=== PATIENT | female | born 1960 | race Caucasian/White ===

== ENCOUNTER → 2017-10-22 15:45 | Outpatient (CLI) | payer BC, SELFPAY ==
--- NOTE | 2017-10-22 15:48 | HPBI_ITS ---
MAMMOGRAPHY - BILATERAL SCREENING REASON FOR EXAM: Female, 56 years old. Routine annual screening examination. PERTINENT HISTORY: Non-contributory. Prior right stereotactic breast biopsy. TECHNIQUE: Digital bilateral breast genna (3D mammographic acquisition) in the CC and MLO projections. 2-D mediolateral oblique (MLO) and craniocaudad (CC) views of both breasts were obtained. CAD: Full Field Digital Mammography with Computer Added Detection was performed. COMPARISON: Comparison is made with prior outside examination dated September 25, 2016. FINDINGS: Breast Composition: The breasts are extremely dense, which lowers the sensitivity of mammography. There are no dominant masses or suspicious calcifications. A tissue clip marker is seen in the deep upper lateral portion of the right breast interpreted with prior stereotactic biopsy. A 9.1 mm nodular density is seen at the biopsy site where the clip is present. No other significant abnormalities are identified. There has been no significant change since the prior study. HPBI/SCREENING MAMM (CAD), BILAT IMPRESSION: Stable bilateral screening mammogram. Yearly follow-up mammogram recommended. (A) ASSESSMENT CATEGORY: BIRADS Category 2: Benign. A letter regarding these results will be sent to the patient by the facility within 30 days. Approximately 10% of breast cancers are not detected by mammography. A normal mammogram should not delay biopsy of a clinically suspicious abnormality. [id number] Electronically Signed: Dwight Knapp MD at 9:56 EST Tel [phone], Service support ,
== END ==
PROVIDERS: Family Provider Family Medicine; PCP Family Medicine; Visit Provider Nurse Practitioner Women's Health
DX: Z12.31 Encounter for screening mammogram for malignant neoplasm of breast (principal)
CPT/HCPCS: 77063; 77067

== ENCOUNTER → 2018-12-17 15:20 | Outpatient (CLI) | payer BC, SELFPAY ==
--- NOTE | 2018-12-17 15:24 | BI_ITS ---
MAMMOGRAPHY - BILATERAL SCREENING REASON FOR EXAM: Female, 58 years old. Routine annual screening examination. PERTINENT HISTORY: Non-contributory. Remote right stereotactic breast biopsy. TECHNIQUE: Digital bilateral breast cami (3D mammographic acquisition) in the CC and MLO projections. 2-D mediolateral oblique (MLO) and craniocaudad (CC) views of both breasts were obtained. CAD: Full Field Digital Mammography with Computer Added Detection was performed. COMPARISON: Comparison is made with prior study dated October 22, 2017 and September 25, 2016. FINDINGS: Breast Composition: The breasts are extremely dense, which lowers the sensitivity of mammography. There are no dominant masses or suspicious calcifications. Once again, a tissue clip marker is seen in deep upper lateral portion of the right breast. Stable 9 mm nodular density at the biopsy site. No other significant abnormalities are identified. There has been no significant change since the prior study. BI/SCREEN MAMM (CAD) W/CAMI BILAT IMPRESSION: Stable bilateral screening mammogram. Yearly follow-up mammogram recommended. (A) ASSESSMENT CATEGORY: BIRADS Category 2: Benign. A letter regarding these results will be sent to the patient by the facility within 30 days. Approximately 10% of breast cancers are not detected by mammography. A normal mammogram should not delay biopsy of a clinically suspicious abnormality. [id number] Electronically Signed: Dwight Knapp, at 9:10 EDT , Service support ,
== END ==
PROVIDERS: Family Provider Family Medicine; PCP Family Medicine; Referring Provider Nurse Practitioner Women's Health; Visit Provider Nurse Practitioner Women's Health
DX: Z12.31 Encounter for screening mammogram for malignant neoplasm of breast (principal)
CPT/HCPCS: 77063; 77067

== ENCOUNTER 2019-06-19 13:12 | Emergency (ER) | payer BC, SELFPAY ==
[2019-01-05 08:16] VITALS: BMI 26.6
[2019-06-19 13:12] VITALS: BP 102/65; PULSE 80; RESP 16; TEMP 36.3
[2019-06-19 13:13] VITALS: BP 102/65; PULSE 80; RESP 16; TEMP 36.3; BMI 26.2
--- NOTE | 2019-06-19 13:30 | CT_ITS ---
STUDY: CT ABDOMEN AND PELVIS WITHOUT CONTRAST REASON FOR EXAM: Female, 58 years old. Left lower quadrant pain. RADIATION DOSAGE (If Supplied By Facility): CTDIvol = ( 7.49 ) mGy, DLP = ( 346.02 ) mGycm TECHNIQUE: Transaxial images were obtained from the dome of the diaphragm to the symphysis pubis without oral contrast, and without intravenous contrast. Sagittal and coronal images were reconstructed. Individualized dose optimization techniques were used for this CT. COMPARISON: April 08, 2015. FINDINGS: The visualized lung bases are unremarkable. There is small pericardial effusion. There is hepatomegaly with diffuse hepatic enlargement. Normal gallbladder and extrahepatic biliary system. Normal spleen. Normal pancreas. Normal bilateral adrenal glands. Normal right kidney. There is 0.2 cm stone in the lower pole of the left kidney. There is parapelvic cyst. Normal visualized stomach. Normal small intestine. Normal colon. There is non-visualization of the appendix. Normal abdominal aorta. Normal inferior vena cava. Normal retroperitoneum. Normal urinary bladder. Normal visualized uterus. There is no free fluid in the abdomen or pelvis. Normal abdominal wall. Normal osseous structures. CT/Abdomen/Pelvis without Cont IMPRESSION: Left renal stone. No hydronephrosis. Electronically Signed: Kulwant Moscoso MD at 14:57 EDT , Service support ,
[2019-06-19] MEDS: 0.9% Normal Saline 1,000 ML 1000 ML IV (13:42)
[2019-06-19] MEDS: Dicyclomine 20 MG/2 ML Vial IM (13:43)
[2019-06-19 13:47] LABS: Absolute Lymphocyte Count 1.34 X10^3/uL (0.83-4.51); Absolute Neutrophil Count 3.6 X10^3/uL (2.0-7.7); Basophil# 0.02 X10^3/uL; Basophil% 0.3 % (0-1); Eosinophil# 0.17 X10^3/uL; Hemoglobin 14.1 g/dL (12.0-15.0); Lymphocyte # 1.34 X10^3/ul (4.0); Lymphocyte % 23.4 % (19-41); Mean Corp Hgb Conc 31.3 g/dL (32-36); Mean Corpuscular Hgb 29.5 pg (27.0-32.0); Mean Corpuscular Volume 94.1 fL (81-99); Mean Platelet Vol. 9.5 fl (6.2-12.0); Monocyte# 0.56 X10^3/uL; Monocyte% 9.8 % (0-10); NRBC Flagged by Analyzer 0 % (0-5); Neutrophil # 3.63 X10^3/uL (2.7-7.7); Neutrophil % 63.3 % (47-70); Platelet Count 248 K/mm3 (150-450); RBC Distribution Width CV 13.1 % (11.6-14.6); RBC Distribution Width SD 44.9 fl (35.1-43.9); Red Blood Count 4.78 M/mm3 (4.2-5.4); White Blood Count 5.7 K/mm3 (4.4-11.0)
[2019-06-19 14:02] LABS: Anion Gap 4 (5-15); BUN 17 mg/dL (7-18); BUN/Creat Ratio 19.6 RATIO (10-20); Chloride 106 mmol/L (98-107); Creatinine, Serum 0.87 mg/dL (0.55-1.02); EST Glomerular Filtration Rate 71 mL/min (>60); Est Glom Filt Rate - Afr Amer 86 mL/min (>60); Estimated Creatinine Clearance 57.59 ml/min; Glucose 93 mg/dL (74-106); Potassium 4.1 mmol/L (3.5-5.1); Sodium Level 140 mmol/L (136-145)
[2019-06-19 14:21] LABS: Lactic Acid 0.7 mmol/L (0.4-2.0)
--- NOTE | 2019-06-19 15:08 | ED.DCSUM_ITS ---
- ER Visit Summary Date of Service: 06/19/19 Chief Complaint: [Abdominal pain] History of Present Illness: The patient is a 58 F [resents to the emergency department complaint of abdominal pain for the last 4 days as well as nausea and diarrhea. Patient states initially symptoms started with more nausea and dry heaves and not feeling well. Last evening she started having watery stools and has had about 10 watery stools. She denies any blood in her stool or black tarry stools. Patient has no medical history otherwise. She has no prior surgical history. Patient denies recent travel. She denies recent antibiotic usage. She was seen at urgent care and referred to the ER for further evaluation.] Physical Examination: [HEENT-PERRLA, EOMI. Cranial nerves II through XII grossly intact. TMs clear. Mucous membranes moist. No adenopathy. Cardiovascular-regular rate and rhythm without murmur or ectopy Lungs-clear to auscultation, chest wall stable without crepitus or subcu emphysema Abdomen-normoactive bowel sounds, soft. Patient has some tenderness over left lower quadrant with some guarding. There is no rebound, rigidity, or perineal signs. Extremities-intact ?4, normal range of motion, normal pulses, atraumatic] Test Results: [CBC with differential obtained showed a normal white count of 5.7, hemoglobin 14, hematocrit 45, platelets 248. Chemistries unremarkable. Lactate was normal at 0.7. CT flank showed nothing acute. Stool for enteric pathogens was sent and those results will be pending.] Emergency Department Course and Treatment: [Patient was given a liter normal same fluid bolus. Patient was given Bentyl and Zofran. She felt improved.] Treatment Plan: [Patient will be given Bentyl and Zofran. She is advised to use Imodium for the diarrhea. Patient advised to push fluids. Patient to follow- up with her primary care physician within next 3 to 5 days.] Disposition: [Discharged home in stable condition] Impression: [Viral gastroenteritis] This note was generated with [employer] dictation software. It may contain incorrect words, spelling, and punctuation that were not noted in review of the chart prior to signing ED Disposition - Plan for ED Patient: Referrals: Sanford Richey III, MD [Primary Care Provider] -
--- NOTE | 2019-06-19 15:11 | ED.DEP ---
ED Disposition - Plan for ED Patient: Instructions: GASTROENTERITIS, Viral (6y-Adult) Prescriptions: Dicyclomine HCl [Bentyl] 20 mg PO TIDAC #20 cap Prescription Printed Ondansetron [Zofran Odt] 4 mg PO Q8H PRN PRN #10 tab PRN Reason: Nausea Prescription Printed Referrals: Sanford Richey III, MD [Primary Care Provider] - 3-5 Days
[2019-06-19 15:18] VITALS: BP 113/52; PULSE 67; RESP 16; O2SAT 97
--- NOTE | 2019-06-19 15:19 | ED.RN ---
REVIEWED D/C INSTRUCTIONS, FOLLOW UP CARE, PRESCRIPTIONS, AND S/S THAT WOULD WARRANT A RETURN TO THE ED WITH PT. PT VERBALIZED AN UNDERSTANDING AND DENIES FURTHER QUESTIONS FOR THIS RN. PT SKIN P/W/D, RESP EVEN AND UNLABORED, PT A&O X 3, NO DISTRESS NOTED. PT AMBULATED OUT OF ED, GAIT STEADY.
== END 2019-06-19 15:20 | disposition home or self-care (01) ==
PROVIDERS: Emergency Provider Emergency Medicine; Family Provider Family Medicine; PCP Family Medicine
DX: A08.4 Viral intestinal infection, unspecified (principal); N20.0 Calculus of kidney
CPT/HCPCS: 74176; 80048; 83605; 85025; 87506; 96360; 96372; 99284; J7030; A4216

== ENCOUNTER 2019-08-31 13:49 | Emergency (ER) | payer BC, SELFPAY ==
[2019-08-31 13:50] VITALS: BP 119/59; PULSE 70; RESP 16; TEMP 36.5; O2SAT 96; BMI 25.9
--- NOTE | 2019-08-31 14:04 | NURSING ---
NO OLD EKGS
--- NOTE | 2019-08-31 14:13 | CT_ITS ---
STUDY: CT BRAIN WITHOUT CONTRAST REASON FOR EXAM: Female, 58 years old. SINUS INFECTION, EPISODE OF Vomiting, memory PROBLEMS NOW, AMNESIA AND CONFUSION RADIATION DOSAGE (If Supplied By Facility): CTDIvol = ( 44.99 ) mGy, DLP = ( 748.30 ) mGycm TECHNIQUE: Transaxial CT imaging of the brain was performed without administration of intravenous contrast material. Individualized dose optimization techniques were used for this CT. COMPARISON: No relevant priors. FINDINGS: Normal soft tissue structures. Normal calvarium. There is mild cerebral atrophy with widening of the extra-axial spaces and ventricular dilatation. There are areas of decreased attenuation within the white matter tracts of the supratentorial brain, consistent with microvascular disease changes. Normal basal ganglia and thalami. Normal brainstem. There is mild cerebellar atrophy. There is no intracranial hemorrhage. There are no findings of an acute ischemic infarction. Normal visualized paranasal sinuses. There is calcification of the bilateral cavernous carotid arteries. CT/Brain/Head without Contrast IMPRESSION: Mild atrophy no evidence of acute hemorrhage or infarct or edema. The visualized sinuses appear clear. Electronically Signed: Kenna Valverde MD at 14:50 EST Tel , Service support ,
[2019-08-31 14:16] LABS: Bedside Glucose 79 mg/dL (70-110)
[2019-08-31] MEDS: 0.9% Normal Saline 1,000 ML 150 ML IV (14:23)
[2019-08-31 14:28] LABS: Absolute Lymphocyte Count 1.51 X10^3/uL (0.83-4.51); Absolute Neutrophil Count 6.3 X10^3/uL (2.0-7.7); Basophil# 0.04 X10^3/uL; Basophil% 0.5 % (0-1); Eosinophil# 0.13 X10^3/uL; Eosinophils% 1.5 % (0-5); Hematocrit 40.3 % (37-47); Hemoglobin 12.9 g/dL (12.0-15.0); Lymphocyte # 1.51 X10^3/ul (4.0); Lymphocyte % 17.9 % (19-41); Mean Corpuscular Hgb 29.7 pg (27.0-32.0); Mean Corpuscular Volume 92.9 fL (81-99); Mean Platelet Vol. 9.9 fl (6.2-12.0); Monocyte# 0.38 X10^3/uL; Monocyte% 4.5 % (0-10); NRBC Flagged by Analyzer 0 % (0-5); Neutrophil # 6.33 X10^3/uL (2.7-7.7); Neutrophil % 75.2 % (47-70); Platelet Count 229 K/mm3 (150-450); RBC Distribution Width CV 13.4 % (11.6-14.6); RBC Distribution Width SD 45.7 fl (35.1-43.9); Red Blood Count 4.34 M/mm3 (4.2-5.4); White Blood Count 8.4 K/mm3 (4.4-11.0)
[2019-08-31 14:36] LABS: Anion Gap 4 (5-15); BUN 21 mg/dL (7-18); BUN/Creat Ratio 26.1 RATIO (10-20); Calcium,Total 8.9 mg/dL (8.5-10.1); Chloride 109 mmol/L (98-107); Creatinine, Serum 0.81 mg/dL (0.55-1.02); EST Glomerular Filtration Rate 77 mL/min (>60); Est Glom Filt Rate - Afr Amer 93 mL/min (>60); Estimated Creatinine Clearance 59.15 ml/min; Glucose 99 mg/dL (74-106); Sodium Level 141 mmol/L (136-145)
--- NOTE | 2019-08-31 15:12 | ED.DEP ---
ED Disposition - Plan for ED Patient: Instructions: SYNCOPE, Vasovagal, BRONCHITIS, Antiobiotic Treatment (Adult) Referrals: Sanford Richey III, MD [Primary Care Provider] - 3-5 Days
--- NOTE | 2019-08-31 15:15 | ED.DCSUM_ITS ---
- ER Visit Summary Date of Service: 08/31/19 Chief Complaint: [Nausea and near syncope] History of Present Illness: The patient is a 58 F [presents to the emergency department complaint of symptoms that started around 12:30 PM. Patient states that she was feeling somewhat nauseated after taking a shower this afternoon. Patient states that she was started on doxycycline couple days ago for an upper respiratory infection that she has had for over a week. Patient went into the bathroom and began to vomit. Patient, fell back up against the wall and then laid down on the ground. states she then became relatively unresponsive for short time and that her eyes were still moving but really he she was not responding to him. Afterwards patient was confused and disoriented and could not recall events that she should know. became concerned and brought her to the emergency department. On arrival patient is awake and alert and essentially back to her baseline. She denies any weakness or paresthesias. Patient has no medical history.] Physical Examination: [HEENT-PERRLA, EOMI. Cranial nerves II through XII grossly intact. TMs clear. Mucous membranes moist. No adenopathy. Cardiovascular-regular rate and rhythm without murmur or ectopy Lungs-clear to auscultation, chest wall stable without crepitus or subcu emphysema Abdomen-normoactive bowel sounds, soft, nontender, no rebound or rigidity, no peritoneal signs. Neuro sgix-lenwvg-kild and heel malhotra testing within normal limits, negative Romberg, negative , Fundi benign. NIH stroke scale was 0. Extremities-intact ?4, normal range of motion, normal pulses, atraumatic] Test Results: [CT scan of the brain without contrast was unremarkable. CBC with differential was normal. Chemistries were normal.] Emergency Department Course and Treatment: [Placed on a bus driver/monitor and was given normal saline on arrival.] Treatment Plan: [At this point I suspect patient likely had a vasovagal episode. It is unclear the etiology of the persistent amnesia which is now essentially resolved however. I do not feel patient was having stroke or TIA type symptoms.] Disposition: [Discharged home in stable condition.] Impression: [Vasovagal syncope Upper respiratory infection] This note was generated with [employer] software. It may contain incorrect words, spelling, and punctuation that were not noted in review of the chart prior to signing ED Disposition - Plan for ED Patient: Instructions: BRONCHITIS, Antiobiotic Treatment (Adult), SYNCOPE, Vasovagal Referrals: Sanford Richey III, MD [Primary Care Provider] - 3-5 Days
[2019-08-31 15:22] VITALS: BP 114/42; PULSE 62; RESP 16; O2SAT 97
--- NOTE | 2019-08-31 15:26 | ED.DEP ---
ED Disposition - Plan for ED Patient: Instructions: BRONCHITIS, Antiobiotic Treatment (Adult), SYNCOPE, Vasovagal Prescriptions: Ondansetron [Zofran Odt] 4 mg PO Q8H PRN PRN #10 tab PRN Reason: Nausea Prescription Printed Referrals: Sanford Richey III, MD [Primary Care Provider] - 3-5 Days
== END 2019-08-31 15:32 | disposition home or self-care (01) ==
LOC: ED 14:39
PROVIDERS: Emergency Provider Emergency Medicine; Family Provider Family Medicine; PCP Family Medicine
DX: R55 Syncope and collapse (principal); J06.9 Acute upper respiratory infection, unspecified; R41.3 Other amnesia
CPT/HCPCS: 70450; 80048; 82962; 85025; 96360; 99285; J7030; A4216

== ENCOUNTER → 2020-01-21 13:18 | Outpatient (CLI) | payer BC, SELFPAY ==
--- NOTE | 2020-01-21 13:22 | BI_ITS ---
MAMMOGRAPHY - BILATERAL SCREENING REASON FOR EXAM: Female, 59 years old. Routine annual screening examination. PERTINENT HISTORY: Non-contributory. Remote right stereotactic breast biopsy. TECHNIQUE: Digital bilateral breast cami (3D mammographic acquisition) in the CC and MLO projections. 2-D mediolateral oblique (MLO) and craniocaudad (CC) views of both breasts were obtained. CAD: Full Field Digital Mammography with Computer Added Detection was performed. COMPARISON: Comparison is made with prior study dated December 17, 2018 and October 22, 2017. FINDINGS: Breast Composition: The breasts are extremely dense, which lowers the sensitivity of mammography. There are no dominant masses or suspicious calcifications. A tissue clip marker is once again seen in the upper lateral aspect of the right breast. A 7.8 mm x 6.4 mm nodular density is seen at the biopsy site. No other significant abnormalities are identified. There has been no significant change since the prior study. BI/SCREEN MAMM (CAD) W/CAMI BILAT IMPRESSION: Stable bilateral screening mammogram. Yearly follow-up mammogram recommended. (A) ASSESSMENT CATEGORY: BIRADS Category 2: Benign. A letter regarding these results will be sent to the patient by the facility within 30 days. Approximately 10% of breast cancers are not detected by mammography. A normal mammogram should not delay biopsy of a clinically suspicious abnormality. [id number] Electronically Signed: Dwight Knapp, at 14:27 EDT , Service support ,
== END ==
PROVIDERS: PCP Family Medicine; Referring Provider Nurse Practitioner Women's Health; Visit Provider Nurse Practitioner Women's Health
DX: Z12.31 Encounter for screening mammogram for malignant neoplasm of breast (principal)
CPT/HCPCS: 77063; 77067

== ENCOUNTER → 2020-02-17 | Outpatient (CLI) | payer BC, SELFPAY ==
[2020-02-17 13:12] VITALS: BMI 25.9
[2020-02-23 05:12] LABS: HPV APTIMA, High Risk Negative (Negative)
== END | disposition home or self-care (01) ==
LOC: LABSPEC 16:55
PROVIDERS: PCP Family Medicine; Referring Provider Nurse Practitioner Women's Health; Visit Provider Nurse Practitioner Women's Health
DX: Z12.4 Encounter for screening for malignant neoplasm of cervix (principal)
CPT/HCPCS: 87624; 88175; G0145

== ENCOUNTER → 2021-04-03 12:14 | Outpatient (CLI) | payer BC, SELFPAY ==
[2020-02-17 13:12] VITALS: BMI 25.9
[2021-03-27 11:18] VITALS: BMI 25.9
--- NOTE | 2021-04-03 12:18 | BI_ITS ---
MAMMOGRAPHY - BILATERAL SCREENING REASON FOR EXAM: Female, 60 years old. Routine annual screening examination. PERTINENT HISTORY: Non-contributory. Remote right stereotactic breast biopsy. TECHNIQUE: Digital bilateral breast cami (3D mammographic acquisition) in the CC and MLO projections. 2-D mediolateral oblique (MLO) and craniocaudad (CC) views of both breasts were obtained. CAD: Full Field Digital Mammography with Computer Added Detection was performed. COMPARISON: Comparison is made with prior study dated 01/21/2020 and 12/17/2018. FINDINGS: Breast Composition: The breasts are extremely dense, which lowers the sensitivity of mammography. There are no dominant masses or suspicious calcifications. A tissue clip marker is once again seen in the upper lateral aspect of the right breast. A 7.7 mm nodule is seen at the biopsy site. No other significant abnormalities are identified. There has been no significant change since the prior study. BI/SCRN MAMM (CAD)W/CAMI BILAT IMPRESSION: Stable bilateral screening mammogram. Yearly follow-up mammogram recommended. (A) ASSESSMENT CATEGORY: BIRADS Category 2: Benign. A letter regarding these results will be sent to the patient by the facility within 30 days. Approximately 10% of breast cancers are not detected by mammography. A normal mammogram should not delay biopsy of a clinically suspicious abnormality. [id number] Electronically Signed: Dwight Knapp MD at 13:25 EDT , Service support ,
== END ==
PROVIDERS: PCP Family Medicine; Referring Provider Nurse Practitioner Women's Health; Visit Provider Nurse Practitioner Women's Health
DX: Z12.31 Encounter for screening mammogram for malignant neoplasm of breast (principal)
CPT/HCPCS: 77063; 77067

== ENCOUNTER → 2022-04-06 | Outpatient (CLI) | payer BC, SELFPAY ==
--- NOTE | 2022-04-06 10:08 | US_ITS ---
STUDY: ULTRASOUND OF THE FEMALE PELVIS - COMPLETE REASON FOR EXAM: Female, 61 years old. pain LMP: Postmenopausal TECHNIQUE: CT 06/19/2019 TECHNICAL QUALITY: Adequate. COMPARISON: None. FINDINGS: The uterus is retroverted and is in a midline position. The uterus measures 4.5 x 2.9 x 2.5 cm. Normal uterine cervix. The endometrium measures 2.6 mm in thickness, and is hyperechoic. There is no demonstrated endometrial mass. There is no demonstrated myometrial mass although myometrium is homogenous. I.U.D. - The patient does not have an I.U.D. The right ovary is visualized. The right ovary measures 3.3 x 2.2 x 1.9 cm. Simple anechoic cyst of the right adnexa measures 2.4 cm. No mural nodules or septations. SRU Consensus Conference guidelines (Torres, et. al. Radiology 2019;293:359-371) suggest that this simple cyst is almost certainly benign and no follow-up of this cyst is necessary.There is no visualized right adnexal mass or complex lesion. There is normal arterial and normal venous vascularity. The left ovary is visualized. The left ovary measures 1.9 x 1.8 x 0.8 cm. There is no left ovarian cyst or ovarian mass. There is no visualized left adnexal mass or complex lesion. There is normal arterial and normal venous vascularity. There is no fluid in the cul-de-sac. Visualized urinary bladder is unremarkable. US/Transvaginal Non- IMPRESSION: Normal female pelvis. Electronically Signed: Cameron Major MD ([place]) at 11:52 EDT ,
--- NOTE | 2022-04-06 10:08 | US_ITS ---
STUDY: ULTRASOUND OF THE FEMALE PELVIS - COMPLETE REASON FOR EXAM: Female, 61 years old. pain LMP: Postmenopausal TECHNIQUE: CT 06/19/2019 TECHNICAL QUALITY: Adequate. COMPARISON: None. FINDINGS: The uterus is retroverted and is in a midline position. The uterus measures 4.5 x 2.9 x 2.5 cm. Normal uterine cervix. The endometrium measures 2.6 mm in thickness, and is hyperechoic. There is no demonstrated endometrial mass. There is no demonstrated myometrial mass although myometrium is homogenous. I.U.D. - The patient does not have an I.U.D. The right ovary is visualized. The right ovary measures 3.3 x 2.2 x 1.9 cm. Simple anechoic cyst of the right adnexa measures 2.4 cm. No mural nodules or septations. SRU Consensus Conference guidelines (Torres, et. al. Radiology 2019;293:359-371) suggest that this simple cyst is almost certainly benign and no follow-up of this cyst is necessary.There is no visualized right adnexal mass or complex lesion. There is normal arterial and normal venous vascularity. The left ovary is visualized. The left ovary measures 1.9 x 1.8 x 0.8 cm. There is no left ovarian cyst or ovarian mass. There is no visualized left adnexal mass or complex lesion. There is normal arterial and normal venous vascularity. There is no fluid in the cul-de-sac. Visualized urinary bladder is unremarkable. US/Pelvic (Non ) IMPRESSION: Normal female pelvis. Electronically Signed: Cameron Major MD ([place]) at 11:52 EDT ,
== END | disposition home or self-care (01) ==
LOC: US 10:07
PROVIDERS: PCP Family Medicine; Referring Provider Nurse Practitioner Women's Health; Visit Provider Nurse Practitioner Women's Health
DX: R10.2 Pelvic and perineal pain (principal); Z78.0 Asymptomatic menopausal state
CPT/HCPCS: 76830; 76856

== ENCOUNTER → 2022-04-09 | Outpatient (CLI) | payer BC, SELFPAY ==
--- NOTE | 2022-04-09 14:10 | BI_ITS ---
MAMMOGRAPHY - BILATERAL SCREENING 3-D TOMOSYNTHESIS REASON FOR EXAM: Female, 61 years old. Routine screening PERTINENT HISTORY: No significant family history. TECHNIQUE: 2-D mammograms and 3-D Tomosynthesis of the breast (s) were performed. CAD was performed. COMPARISON: 04/03/2021 FINDINGS: The breast composition is heterogeneously dense that can obscure small breast masses. Scattered benign calcifications are seen. No dense spiculated masses or suspicious microcalcifications are identified. No architectural distortion is identified. There is no skin thickening or retraction. There has been no significant change since the prior study. BI/SCRN MAMM (CAD)W/CAMI BILAT IMPRESSION: No mammographic signs of malignancy. Routine yearly mammograms recommended. ASSESSMENT CATEGORY: BIRADS Category 2: Benign. A letter regarding these results will be sent to the patient by the facility within 30 days. FOLLOW UP RECOMMENDATION: Yearly follow up mammogram recommended. (A) Approximately 10% of breast cancers are not detected by mammography. A normal mammogram should not delay biopsy of a clinically suspicious abnormality. Electronically Signed: Rome Powers MD at 11:18 EDT ,
== END | disposition home or self-care (01) ==
LOC: OPBI 14:09
PROVIDERS: Visit Provider Nurse Practitioner Women's Health
DX: Z12.31 Encounter for screening mammogram for malignant neoplasm of breast (principal)
CPT/HCPCS: 77063; 77067

== ENCOUNTER → 2023-05-15 | Outpatient (CLI) | payer BC, SELFPAY ==
--- NOTE | 2023-05-15 16:38 | BI_ITS ---
MAMMOGRAPHY - BILATERAL SCREENING REASON FOR EXAM: Female, 62 years old. Routine annual screening examination. PERTINENT HISTORY: Non-contributory. Remote right stereotactic breast biopsy. TECHNIQUE: Digital bilateral breast cami (3D mammographic acquisition) in the CC and MLO projections. 2-D mediolateral oblique (MLO) and craniocaudad (CC) views of both breasts were obtained. CAD: Full Field Digital Mammography with Computer Added Detection was performed. COMPARISON: Comparison is made with prior study April 09, 2022 and April 03, 2021. FINDINGS: Breast Composition: The breasts are extremely dense, which lowers the sensitivity of mammography. There are no dominant masses or suspicious calcifications. Stable benign appearing bilateral axillary nodes. A tissue clip marker is once again seen in the upper lateral aspect of the right breast. Stable 6.3 mm x 7.3 mm well-defined nodule adjacent to the tissue clip marker. No other significant abnormalities are identified. There has been no significant change since the prior study. BI/SCRN MAMM (CAD)W/CAMI BILAT IMPRESSION: Stable bilateral screening mammogram. Yearly follow-up mammogram recommended. (A) ASSESSMENT CATEGORY: BIRADS Category 2: Benign. A letter regarding these results will be sent to the patient by the facility within 30 days. Approximately 10% of breast cancers are not detected by mammography. A normal mammogram should not delay biopsy of a clinically suspicious abnormality. [id number] Electronically Signed: Dwight Knapp MD at 9:03 EDT ,
== END | disposition home or self-care (01) ==
LOC: OPBI 05-16 07:21
PROVIDERS: Referring Provider Nurse Practitioner Women's Health; Visit Provider Nurse Practitioner Women's Health
DX: Z12.31 Encounter for screening mammogram for malignant neoplasm of breast (principal)
CPT/HCPCS: 77063; 77067

== ENCOUNTER → 2024-05-21 | Outpatient (CLI) | payer BC, SELFPAY ==
--- NOTE | 2024-05-21 15:12 | BI_ITS ---
MAMMOGRAPHY - BILATERAL SCREENING REASON FOR EXAM: Female, 63 years old. Routine annual screening examination. PERTINENT HISTORY: Non-contributory. History of prior right stereotactic breast biopsy. TECHNIQUE: Digital bilateral breast cami (3D mammographic acquisition) in the CC and MLO projections. 2-D mediolateral oblique (MLO) and craniocaudad (CC) views of both breasts were obtained. CAD: Full Field Digital Mammography with Computer Added Detection was performed. COMPARISON: Comparison is made with prior study date May 15, 2023 and April 09, 2022. FINDINGS: Breast Composition: The breasts are extremely dense, which lowers the sensitivity of mammography. There are no dominant masses or suspicious calcifications. A tissue clip marker is once again seen in the upper lateral aspect of the right breast. Stable 7.5 mm well-defined nodule adjacent to the tissue marker. No other significant abnormalities are identified. There has been no significant change since the prior study. BI/SCRN MAMM (CAD)W/CAMI BILAT IMPRESSION: Stable bilateral screening mammogram. Yearly follow-up mammogram recommended. (A) ASSESSMENT CATEGORY: BIRADS Category 2: Benign. A letter regarding these results will be sent to the patient by the facility within 30 days. Approximately 10% of breast cancers are not detected by mammography. A normal mammogram should not delay biopsy of a clinically suspicious abnormality. [id number] Electronically Signed: Dwight Knapp MD at 8:39 EDT ,
== END | disposition home or self-care (01) ==
LOC: OPBI 15:12
PROVIDERS: PCP Family Medicine; Referring Provider Nurse Practitioner Women's Health; Visit Provider Nurse Practitioner Women's Health
DX: Z12.31 Encounter for screening mammogram for malignant neoplasm of breast (principal)
CPT/HCPCS: 77063; 77067

== ENCOUNTER → 2025-05-30 | Outpatient (CLI) | payer MEDICARE, BC, SELFPAY ==
--- NOTE | 2025-05-30 16:00 | BI_ITS ---
EXAM: SCRN MAMM (CAD)W/CAMI BILAT DATE: 05/30/2025 CLINICAL HISTORY: F, Age 64 y/o , SCREEN FOR BREAST CANCER No family history. History of remote right stereotactic breast biopsy. TECHNIQUE: Procedure Code: [id number] Modality: MG Procedure: SCRN MAMM (CAD)W/CAMI BILAT COMPARISON: Prior exam(s) dated May 21, 2022.. FINDINGS: TISSUE DENSITY: The breasts are extremely dense, which lowers the sensitivity of mammography. Bilateral Breast Mammographic Findings: No significant masses, calcifications or other abnormalities are identified. A tissue clip marker is once again seen within a tiny nodule in the upper lateral aspect of the right breast. This is unchanged. No suspicious masses, areas of developing architectural distortion, or suspicious calcifications. There has been no significant interval change. BI/SCRN MAMM (CAD)W/CAMI BILAT IMPRESSION: Stable bilateral screening mammogram. OVERALL FINAL ASSESSMENT BI-RADS 2: BENIGN RECOMMENDATION: Routine annual follow-up in 1 Year Additional Recommendation none A letter with findings and recommendations will be mailed to the patient. Reading Location: [place] [id number]
== END | disposition home or self-care (01) ==
LOC: OPBI 15:47
PROVIDERS: PCP Family Medicine; Referring Provider Nurse Practitioner Women's Health; Visit Provider Nurse Practitioner Women's Health
DX: Z12.31 Encounter for screening mammogram for malignant neoplasm of breast (principal)
CPT/HCPCS: 77063; 77067

== ENCOUNTER → 2025-07-05 | Outpatient (CLI) | payer MEDICARE, BC, SELFPAY ==
[2025-07-08 16:09] LABS: HPV APTIMA, High Risk Negative (Negative)
== END | disposition home or self-care (01) ==
LOC: LABSPEC 16:17
PROVIDERS: PCP Family Medicine; Referring Provider Nurse Practitioner Women's Health; Visit Provider Nurse Practitioner Women's Health
DX: Z12.4 Encounter for screening for malignant neoplasm of cervix (principal)
CPT/HCPCS: 87624; 88175; G0145